=== PATIENT | male | born 1955 | race American Indian/Alaskan Native ===

== ENCOUNTER 2020-10-05 19:45 | Emergency (ER) | payer BC, MEDICARE ==
[2020-10-05] MEDS ORDERED: hydrALAZINE 25 MG TAB PO ONE (21:31)
--- NOTE | 2020-10-05 23:10 | Cat Scan Report ---
CT HEAD WITHOUT CONTRAST INDICATION / CLINICAL INFORMATION: HEADACHE. TECHNIQUE: All CT scans at this location are performed using CT dose reduction for ALARA by means of automated e xposure control. COMPARISON: None available. FINDINGS: HEMORRHAGE: None. EXTRA-AXIAL SPACES: Normal in size and morphology for the patient's age. VENTRICULAR SYSTEM: Normal in size and morphology for the patient's age. CEREBRAL PARENCHYMA: No significant abnormality. No acute territorial infarct. MIDLINE SHIFT OR HERNIATION: None. CEREBELLUM / BRAINSTEM: No significant abnormality. ORBITS: Bilateral intraocular lens replacement are noted. SOFT TISSUES of HEAD: No significant abnormality. CALVARIUM: No significant abnormality. PARANASAL SINUSES / MASTOID AIR CELLS: Mucosal thickening noted of bilateral ethmoid air cells. ADDITIONAL FINDINGS: None. IMPRESSION: 1. No acute intracranial abnormality. Signer Name: Judson Newman MD Signed: 10/05/2020 11:06 PM Workstation Name: [id number]
--- NOTE | 2020-10-05 23:21 | Emergency Department Report ---
ED Headache HPI - General Chief Complaint: Headache Stated Complaint: NECK PAIN/HIGH BP Source: patient - History of Present Illness Initial Comments: Patient is a 65-year-old -[place] male with a history of hypertension, Crohn's disease and kidney stones who presents to the ED with complaint of acute onset persistent occipital headache and elevated blood pressure for the last 8 hours. Patient states that he failed take his blood pressure medications early in the morning as he usually takes but ended up taking his blood pressure medication later in the afternoon. Patient states that the headache has been persistent in the occipital area since the onset and that his blood pressure has continued to be high. Patient states that he usually takes losartan 25 mg daily for hypertension. Patient denies change in vision, dizziness, syncope, chest pain, shortness of breath, neck pain, back pain, diaphoresis, nausea and vomiting, fall, heavy lifting, fever and chills, abdominal pain, seizures, ataxia or palpitations. Timing/Duration: 24 hours Quality: moderate, sharp, throbbing Head Injury Location: occipital Recent Head Trauma: no recent headache/trauma Associated Symptoms: denies symptoms. denies: confusion, fatigue, facial pain, fever/chills, flushing, nausea/vomiting, nasal congestion, nasal drainage, numbness in legs/feet, seizures, sinus infection, stiff neck, vision changes, weakness Allergies/Adverse Reactions: Allergies No Known Allergies Allergy (Verified 03/04/14 22:39) Home Medications: Ambulatory Orders Amoxicillin [Trimox CAP] 500 mg PO Q8H #30 capsule 10/05/20 Butalb/Acetamin/Caff 50-325-40 [Fioricet 50-325-40] 1 - 2 tab PO Q6HR PRN #15 tab 10/05/20 ED Review of Systems ROS: Stated complaint: NECK PAIN/HIGH BP Other details as noted in HPI Constitutional: denies: chills, fever Eyes: denies: eye pain, eye discharge, vision change ENT: denies: ear pain, throat pain Respiratory: denies: cough, shortness of breath, wheezing Cardiovascular: denies: chest pain, palpitations Endocrine: no symptoms reported Gastrointestinal: denies: abdominal pain, nausea, vomiting, diarrhea Genitourinary: denies: urgency, dysuria Musculoskeletal: denies: back pain, joint swelling, arthralgia Skin: denies: rash, lesions Neurological: headache. denies: weakness, paresthesias Psychiatric: denies: anxiety, depression Hematological/Lymphatic: denies: easy bleeding, easy bruising ED Past Medical Hx - Past Medical History Hx Hypertension: Yes Hx Congestive Heart Failure: No Hx Diabetes: No Hx Kidney Stones: Yes Hx Asthma: No Hx COPD: No Additional medical history: Crohn's - Surgical History Additional Surgical History: Exploratory laparotomy and partial small intestine resection - Social History Smoking Status: Never Smoker Substance Use Type: Alcohol - Medications Home Medications: Home Medications Medication Instructions Recorded Confirmed Last Taken Type Amoxicillin [Trimox CAP] 500 mg PO Q8H #30 capsule 10/05/20 Unknown Rx Butalb/Acetamin/Caff 50-325-40 1 - 2 tab PO Q6HR PRN #15 tab 10/05/20 Unknown Rx [Fioricet 50-325-40] ED Physical Exam - General Limitations: No Limitations General appearance: alert, in no apparent distress - Head Head exam: Present: atraumatic, normocephalic, normal inspection - Eye Eye exam: Present: normal appearance, PERRL, EOMI Pupils: Present: normal accommodation - ENT ENT exam: Present: normal exam, normal orophraynx, mucous membranes moist, TM's normal bilaterally, normal external ear exam - Neck Neck exam: Present: normal inspection, full ROM - Respiratory Respiratory exam: Present: normal lung sounds bilaterally. Absent: respiratory distress, wheezes, rales, rhonchi, chest wall tenderness, accessory muscle use, decreased breath sounds - Cardiovascular Cardiovascular Exam: Present: regular rate, normal rhythm, normal heart sounds. Absent: systolic murmur, diastolic murmur, rubs, gallop - GI/Abdominal GI/Abdominal exam: Present: soft, normal bowel sounds. Absent: tenderness, guarding, rebound, hyperactive bowel sounds, hypoactive bowel sounds, organomegaly - Extremities Exam Extremities exam: Present: normal inspection, full ROM, normal capillary refill - Back Exam Back exam: Present: normal inspection, full ROM. Absent: tenderness, CVA tenderness (L), muscle spasm, paraspinal tenderness, vertebral tenderness - Neurological Exam Neurological exam: Present: alert, oriented X3, CN II-XII intact, normal gait, reflexes normal - Psychiatric Psychiatric exam: Present: normal affect, normal mood - Skin Skin exam: Present: warm, dry, intact, normal color. Absent: rash ED Course Vital Signs 10/05/20 10/05/20 20:37 21:50 Temperature 98.0 F Pulse Rate 78 68 Respiratory 17 Rate Blood Pressure 176/95 175/94 O2 Sat by Pulse 99 Oximetry ED Medical Decision Making - Radiology Data Radiology results: report reviewed, image reviewed [facility] [address] [place] [address] Cat Scan Report Signed Patient: JOHN CASTRO I MR#: [id number] 79 : 1955 Acct:[id number] Age/Sex: 65 / M ADM Date: 10/05/20 Loc: ED Attending Dr: Ordering Physician: VERONICA VILLAREAL Date of Service: 10/05/20 Procedure(s): CT head/brain wo con Accession Number(s): [id number] cc: VERONICA VILLAERAL CT HEAD WITHOUT CONTRAST INDICATION / CLINICAL INFORMATION: HEADACHE. TECHNIQUE: All CT scans at this location are performed using CT dose reduction for ALARA by means of automated exposure control. COMPARISON: None available. FINDINGS: HEMORRHAGE: None. EXTRA-AXIAL SPACES: Normal in size and morphology for the patient's age. VENTRICULAR SYSTEM: Normal in size and morphology for the patient's age. CEREBRAL PARENCHYMA: No significant abnormality. No acute territorial infarct. MIDLINE SHIFT OR HERNIATION: None. CEREBELLUM / BRAINSTEM: No significant abnormality. ORBITS: Bilateral intraocular lens replacement are noted. SOFT TISSUES of HEAD: No significant abnormality. CALVARIUM: No significant abnormality. PARANASAL SINUSES / MASTOID AIR CELLS: Mucosal thickening noted of bilateral ethmoid air cells. ADDITIONAL FINDINGS: None. IMPRESSION: 1. No acute intracranial abnormality. Signer Name: Judson Gonzalez MD Signed: 10/05/2020 11:06 PM Workstation Name: [id number] Transcribed By: Dictated By: JUDSON GONZALEZ Electronically Authenticated By: JUDSON GONZALEZ Signed Date/Time: 10/05/202305 DD/ 03 TD/TT: - Medical Decision Making This is a 65-year-old -[place] male with a history of hypertension, Crohn's disease and kidney stones who presents to the ED with complaint of acute onset persistent occipital headache and elevated blood pressure for the last 8 hours. Patient states that he failed take his blood pressure medications early in the morning as he usually takes but ended up taking his blood pressure medication later in the afternoon. Patient states that the headache has been persistent in the occipital area since the onset and that his blood pressure has continued to be high. Patient states that he usually takes losartan 25 mg daily for hypertension. In the ED, patient is alert and oriented x3 and is not in any distress but hypertensive in triage. Head CT scan without contrast showed no acute intracranial abnormalities or hemorrhage. Incidental finding also included mucosal thickening noted of bilateral ethmoid air cells. Patient was treated in the ED with hydralazine 50 mg p.o. x1. On reevaluation, patient's blood pressure improved significantly. Patient is hemodynamically stable, alert and oriented x4, ambulating normally in the ED with no sign of ataxia or weakness or abnormal gait. Patient was discharged home on pain medications and antibiotic amoxicillin for ethmoidal sinusitis. Patient was advised to follow- up with his primary care physician in 5 to 7 days for reevaluation and to continue taking his regular blood pressure medication as previously prescribed. Patient is advised return to the ED immediately if symptoms get worse. - Differential Diagnosis Tension headache; sinus headache; anxiety; uncontrolled HTN; sinusitis Critical care attestation.: If time is entered above; I have spent that time in minutes in the direct care of this critically ill patient, excluding procedure time. ED Disposition Clinical Impression: Uncontrolled stage 2 hypertension, Sinus headache Acute tension headache Qualifiers: Intractability: not intractable Qualified Code(s): G44.209 - Tension-type headache, unspecified, not intractable Acute ethmoidal sinusitis Qualifiers: Recurrence: non-recurrent Qualified Code(s): J01.20 - Acute ethmoidal sinusitis, unspecified Disposition: DC-01 TO HOME OR SELFCARE Is pt being admited?: No Does the pt Need Aspirin: No Condition: Stable Instructions: Hypertension (ED), Tension Headache, Adult, [id number], Sinus Headache, [id number], Hypertension, Adult, [id number], Sinusitis, Adult, [id number] Additional Instructions: The head CT scan without contrast showed no acute intracranial abnormalities or hemorrhage. There is incidental finding of mucosal thickening noted of bilateral ethmoid air cells consistent with sinusitis. Therefore take your r egular blood pressure medication as prescribed, take medication as needed for headache and antibiotics for sinusitis. Follow-up with your primary care physician in 5 to 7 days for reevaluation. Return to the ED immediately if symptoms get worse. Prescriptions: Butalb/Acetamin/Caff 50-325-40 [Fioricet 50-325-40] 1 - 2 tab PO Q6HR PRN #15 tab PRN Reason: Headache Amoxicillin [Trimox CAP] 500 mg PO Q8H #30 capsule Referrals: KORI MÉNDEZ MD [Primary Care Provider] - 3-5 Days Time of Disposition: 23:29 Print Language: TURKMEN
[2020-10-05 23:47] VITALS: BP 142/81
== END 2020-10-05 23:45 | disposition home or self-care (01) ==
LOC: ED 19:45
DX: J01.20 Acute ethmoidal sinusitis, unspecified (principal); G44.209 Tension-type headache, unspecified, not intractable; I10 Essential (primary) hypertension; Z98.890 Other specified postprocedural states; Z79.899 Other long term (current) drug therapy
CPT/HCPCS: 70450